=== PATIENT | male | born 1980 | race Hispanic/Latino ===

== ENCOUNTER 2020-01-05 16:31 | Emergency (ER) | payer MEDICARE ==
[2020-01-05] MEDS ORDERED: SODIUM CHLORIDE 0.9% 1000ML 1,000 ML IV ONE ×2 (16:32→17:48)
[2020-01-05 17:25] LABS: EOSINOPHILS % (AUTO) 0.3 % (0.0-8.0); HEMATOCRIT 42.3 % (42-54); MEAN CORPUSCULAR HEMOGLOBIN 30.2 pg (27.0-33.0); MEAN CORPUSCULAR HGB CONC 34.5 g/dL (32.0-36.0); MEAN CORPUSCULAR VOLUME 87.4 fL (79-99); MONOCYTES % (AUTO) 3.3 % (3.0-13.0); NEUTROPHILS % (AUTO) 67.1 % (40.0-77.0); PLATELET COUNT (AUTO) 208 K/uL (130-400); RED BLOOD CELL COUNT(AUTO) 4.84 MIL/uL (4.50-6.20); RED CELL DISTRIBUTION WIDTH 13.8 % (11.0-15.5); WHITE BLOOD COUNT (AUTO) 7.2 K/uL (4.8-10.8)
[2020-01-05 17:35] LABS: CARBON DIOXIDE 24 mmol/L (21-32); CHLORIDE 102 mmol/L (101-111); CREATININE 1.6 mg/dL (0.5-1.5); GLOMERULAR FILTR. RATE CALC 52 mL/min (>60); GLUCOSE,RANDOM 149 mg/dL (70-105); POTASSIUM 3.2 mmol/L (3.5-5.1); SODIUM SERUM 138 mmol/L (136-145); UREA NITROGEN, BLOOD 18 mg/dL (7-18)
[2020-01-05 17:39] LABS: ALANINE AMINOTRANSFERASE 39 U/L (12-78); ASPARTATE AMINOTRANSFERASE 20 U/L (10-37); CREATINE KINASE, TOTAL 133 U/L (21-232); TOTAL PROTEIN, SERUM 8.4 g/dL (6.0-8.3)
[2020-01-05 17:40] LABS: ALCOHOL, BLOOD < 3 mg/dL (0-10)
[2020-01-05] MEDS ORDERED: ACETAMINOPHEN EXTRA STRENGTH 500 MG TABLET ONE (18:38)
[2020-01-05 19:31] LABS: APPEARANCE,URINE Clear (CLEAR); BILIRUBIN,URINE Negative (NEGATIVE); COLOR,URINE Dark Yellow (YELLOW); GLUCOSE, URINE (UA) Negative (NEGATIVE); KETONES,URINE Trace mg/dL (NEGATIVE); LEUKOCYTE ESTERASE ,URINE Negative (NEGATIVE); NITRATE,URINE Negative (NEGATIVE); OCCULT BLOOD,URINE Negative (NEGATIVE); PH,URINE 5.5 (5.0-8.0); PROTEIN,URINE POS 1+ mg/dL (NEGATIVE)
[2020-01-05 19:39] LABS: BACTERIA,URINE Few /HPF (None Seen); RBC,URINE 0-1 /HPF (0-1); SQUAMOUS EPITHELIAL CELL,UR Few /HPF (0-2)
[2020-01-05 20:04] LABS: AMPHET/METH SCREEN,URINE NEGATIVE (NEGATIVE); BARBITURATE SCREEN, URINE NEGATIVE (NEGATIVE); BENZODIAZEPINES SCREEN,URINE NEGATIVE (NEGATIVE); CANNABINOID SCREEN,URINE NEGATIVE (NEGATIVE); COCAINE SCREEN,URINE NEGATIVE (NEGATIVE); OPIATE SCREEN,URINE NEGATIVE (NEGATIVE); PHENCYCLIDINE SCREEN,URINE NEGATIVE (NEGATIVE)
== END 2020-01-05 19:07 | disposition home or self-care (01) ==
LOC: EDH 16:31
DX: T67.5XXA Heat exhaustion, unspecified, initial encounter (principal); R42 Dizziness and giddiness; F20.9 Schizophrenia, unspecified; X58.XXXA Exposure to other specified factors, initial encounter; Y93.89 Activity, other specified; Y92.89 Other specified places as the place of occurrence of the external cause; Y99.8 Other external cause status
CPT/HCPCS: 36415; 70450; 80053; 80305; 81001; 82550; 82948; 84484; 85025; 93005; 96360; 99285; J7030 ×2